=== PATIENT | female | born 1955 | race Two or more races ===

== ENCOUNTER 2016-11-18 16:37 | Emergency (ER) | payer SELFPAY ==
[~2016-11-18] VITALS: Ht 160 cm; Wt 72.1 kg
[~2016-11-18 16:37] MED LIST: IBUPROFEN600 MG ORAL; TRAMADOL HCL50 MG ORAL
[2016-11-18 16:50] VITALS: BP 153/86
--- NOTE | 2016-11-18 16:53 | Emergency Room Report ---
History of Present Illness General Chief Complaint: Pain Source: Patient Present Illness HPI 61 YO Female Pt. presents to the ED c/o Left sided posterior rib, and left shoulder pain. Pt. states she is rx'd tramadol, and has been evaluated multiple times before and the pain only responds well to IM Toradol. pt. states she gets relief for several months. She denies fall, recent trauma, strenuous activity, nausea, vomiting, fevers, chills, heart disease, family history of heart attacks. Patient denies swelling in the lower extremities. Patient states she takes out but with minimal relief and Toradol is the only medication that provides her complete relief. Denies numbness tingling or loss of sensation or gross motor movements of the extremities, incontinence of bowel or bladder. Denies CP, Palpitations, LOC, AMS, dizziness, Changes in Vision, Sensation, paresthesias, or a sudden severe headache. Allergies: Uncoded Allergies: MORPHINE (Allergy, Unknown, 08/24/16) PLASTIC TAPE (Allergy, Unknown, 08/24/16) Patient History Past Medical History: see triage record Past Surgical History: none Pertinent Family History: none Now: No Immunizations: UTD Reviewed Nursing Documentation: PMH: Agreed, PSxH: Agreed Nursing Documentation-PMH Past Medical History: No Stated History Review of Systems All Other Systems: negative except mentioned in HPI Physical Exam Vital Signs Date Time Temp Pulse Resp B/P Pulse Ox O2 Delivery O2 Flow Rate FiO2 11/18/16 16:44 97.9 92 16 153/86 99 Room Air Sp02 EP Interpretation: reviewed, normal General Appearance: no apparent distress, alert, GCS 15, non-toxic Head: normocephalic, atraumatic Eyes: bilateral eye PERRL, bilateral eye normal inspection ENT: hearing grossly normal, normal pharynx, no angioedema, normal voice Neck: full range of motion, supple/symm/no masses Respiratory: chest non-tender, lungs clear, normal breath sounds, speaking full sentences Cardiovascular #1: regular rate, rhythm, no edema Cardiovascular #2: 2+ radial (R), 2+ radial (L) Gastrointestinal: normal bowel sounds, non tender, soft, no guarding, no rebound Rectal: deferred Genitourinary: normal inspection, no CVA tenderness Musculoskeletal: back normal, gait/station normal, normal range of motion, non- tender, no calf tenderness, other - PT. is not currently having pain , and pain is not re-producible on PE at this time. Neurologic: alert, oriented x3, responsive, motor strength/tone normal, sensory intact, speech normal Psychiatric: judgement/insight normal, memory normal, mood/affect normal, no suicidal/homicidal ideation Skin: normal color, no rash, warm/dry, well hydrated Lymphatic: no adenopathy Medical Decision Making PA Attestation Dr. Parham is my supervising Physician whom patient management has been discussed with. Diagnostic Impression: Primary Impression: Chronic left shoulder pain Additional Impressions: Rib pain on left side URI, acute ER Course Pt. presents to the ED c/o Left sided posterior rib, and left shoulder pain. Pt. states she is rx'd tramadol, and has been evalutated multiple times before and the pain only responds well to IM Toradol. pt. states she gets relief for several months. Pt also c/o cough intermittently x 3 months believes they are allergies. Ddx considered but are not limited to Fracture, dislocation, contusion, Sprain/ Strain/Spasm, CT, pneumonia Vital signs: are WNL, pt. is afebrile H&PE are most consistent with exacerbation of chronic pain, lungs are CTA bilaterally no wheezing noted, ORDERS: -Pt declines cardiac evaluation, as this problem has been fully worked up in the past, in addition to outpatient work up. ED INTERVENTIONS: -60mg Toradol IM DISCHARGE: At this time pt. is stable for d/c to home. Will provide printed patient care instructions, and any necessary prescriptions. Care plan and follow up instructions have been discussed with the patient prior to discharge. Last Vital Signs Date Time Temp Pulse Resp B/P Pulse Ox O2 Delivery O2 Flow Rate FiO2 11/18/16 16:50 97.9 90 16 153/86 99 Room Air Disposition: HOME, SELF-CARE Condition: Stable Scripts D-Methorphan Hb/Prometh Hcl* (PROMETHAZINE-DM SYRUP*) 118 Ml Syrup 5 ML ORAL Q6H Y for For Cough, #118 ML 0 Refills Prov: Cherelle Briseno P.A. 11/18/16 Loratadine (CLARITIN) 10 Mg Tablet 10 MG ORAL DAILY, #30 TAB Prov: Cherelle Briseno P.A. 11/18/16 Ibuprofen* (MOTRIN*) 600 Mg Tablet 600 MG ORAL THREE TIMES A DAY, #30 TAB 0 Refills Prov: Cherelle Briseno 11/18/16 Patient Instructions: Chronic Pain, PAIN, Uncertain Cause (Acute) Additional Instructions: Take medications as directed. Follow up with PCP in 3-5 days Return sooner to ED if new symptoms occur, or current symptoms become worse. Cherelle Briseno Nov 18, 2016 16:53
[2016-11-18] MEDS ORDERED: Ketorolac 60mg Inj IM ONE (17:15)
[2016-11-18] MEDS ORDERED: PROMETHAZINE-D118 ML ORAL (17:25)
[2016-11-18] MEDS ORDERED: IBUPROFEN600 MG ORAL (17:25)
[2016-11-18] MEDS ORDERED: CLARITIN10 MG ORAL (17:25)
[2016-11-18 17:39] VITALS: BP 153/86
== END 2016-11-18 17:39 | disposition home or self-care (01) ==
LOC: EMR 17:15
DX: M25.512 Pain in left shoulder (principal); G89.29 Other chronic pain; R07.81 Pleurodynia; J06.9 Acute upper respiratory infection, unspecified
CPT/HCPCS: 96372; 99283